=== PATIENT | male | born 1970 | race Caucasian/White ===

== ENCOUNTER 2024-02-19 16:07 | Emergency (ER) | payer SELFPAY ==
--- NOTE | 2024-02-19 16:11 | XRR_ITS ---
PROCEDURE INFORMATION: Exam: XR Abdomen Exam date and time: 02/19/2024 4:39 PM Age: 53 years old Clinical indication: Abdominal pain; Acute; Additional info: Constipation TECHNIQUE: Imaging protocol: Radiologic exam of the abdomen. Views: Frontal supine view of the abdomen. 1 View. COMPARISON: CR XR KUB [id number] 01/29/2018 8:24 AM FINDINGS: Gastrointestinal tract: Moderate fecal burden predominantly in the proximal colon and rectum. No bowel dilation. Bones/joints: No acute findings. XR/XR KUB [id number] IMPRESSION: No acute findings.
[2024-02-19 16:13] VITALS: BP 146/84; PULSE 88; RESP 14; TEMP 36.7; O2SAT 97; BMI 33.1
--- NOTE | 2024-02-19 16:40 | CTR_ITS ---
PROCEDURE INFORMATION: Exam: CT Abdomen And Pelvis Without Contrast Exam date and time: 02/19/2024 4:59 PM Age: 53 years old Clinical indication: Abdominal pain TECHNIQUE: Imaging protocol: Computed tomography of the abdomen and pelvis without contrast. Radiation optimization: All CT scans at this facility use at least one of these dose optimization techniques: automated exposure control; mA and/or kV adjustment per patient size (includes targeted exams where dose is matched to clinical indication); or iterative reconstruction. COMPARISON: CR (ABDOMEN, ) 02/19/2024 4:39 PM RADIATION DOSE METRICS: Total DLP (mGy-cm): 959.98 FINDINGS: Liver: Subcentimeter low-density hepatic lesions have benign features. Follow-up is not necessary. Gallbladder and biliary ducts: Normal. No calcified stones. No ductal dilation. Pancreas: Normal. No ductal dilation. Spleen: Normal. No splenomegaly. Adrenal glands: Normal. No mass. Kidneys and ureters: 4 mm nonobstructive calculus in the lower pole calyx of the right kidney. Bilateral renal cystic lesions. There is a 12 mm cystic lesion at the superior pole of the right kidney measuring 25 Hounsfield units in density. Bilateral subcentimeter renal lesions are too small to further characterize. There are cysts with benign features in the left kidney the larger of which measures 16 mm. Stomach and bowel: Unremarkable. No obstruction. No mucosal thickening. Appendix: A normal appendix is identified. Intraperitoneal space: Unremarkable. No free air. No significant fluid collection. Vasculature: Multivessel atherosclerotic disease. Lymph nodes: Unremarkable. No enlarged lymph nodes. Urinary bladder: Urinary bladder wall thickening could be due to cystitis or lack of distention. Reproductive: Unremarkable as visualized. Bones/joints: Mild to moderate lateral curvature of the lumbar spine with the convexity to the left. Soft tissues: Unremarkable. CT/CT abdomen pelvis wo con [id number] IMPRESSION: 1. Urinary bladder wall thickening could be due to cystitis or lack of distention. 2. 4 mm nonobstructing right renal calculus. 3. Bilateral renal cystic lesions cannot be further characterized without IV contrast. COMMENTS: Consistent with the [employer]'s Incidental Findings Committee white paper (J Am Zhanna Radiol 2018): Any incidental renal lesion less than 1 cm or classified as too small to characterize, or any incidental cystic renal lesion characterized as simple-appearing, is likely benign. No follow-up imaging is recommended for these lesions per consensus recommendations based on imaging criteria.
--- NOTE | 2024-02-19 16:41 | W.ED.ABDPA2 ---
HPI - Abdominal Pain General: Chief Complaint: Abdominal Pain Stated Complaint: constipation (sent by bc) Time Seen by Provider: 02/19/24 16:39 History of Present Illness: 53-year-old male presents emergency room with abdominal pains been going on for over a week. Reports that his lower abdominal pain he said discolored stools as well no hematochezia melena hematemesis or coffee-ground emesis he has felt sick a couple of times no fever no previous abdominal surgeries. No dysuria urgency or frequency. He has had kidney stones in the past states this does not feel like kidney stones he is not noticed any hematuria. Associated Symptoms: Reports change in stool character; Denies chills, dysuria and fever(s) Related Data Allergies Allergy/AdvReac Type Severity Reaction Status Date / Time No Known Allergies Allergy Verified 02/19/24 16:12 Review of Systems Const: Denies: fever(s) or chills Card: Denies: chest pain Resp: Denies: dyspnea GI: Reports: abdominal pain and change in stool character : Denies: dysuria, urinary frequency or urinary urgency Musc: Denies: neck pain or back pain Skin/Breast: Denies: rash PFSH ED PFSH: Medical History (Updated 02/19/24 @ 17:58 by Michel Eng DO) Nephrolithiasis Physical Exam Const: GENERAL APPEARANCE: cooperative ORIENTATION/CONSCIOUSNESS: Yes awake, Yes oriented to person, Yes oriented to place and Yes oriented to time HENMT: COMMON NORMALS: normocephalic, atraumatic and hearing grossly normal bilaterally HEAD & SCALP: normocephalic and atraumatic Resp: COMMON NORMALS: normal respiratory effort, No retractions, No use of accessory muscles and clear to auscultation bilaterally AUSCULTATION: clear to auscultation bilaterally Cardio: COMMON NORMALS: regular rate, regular rhythm and No murmurs present (Cardio) RATE: regular rate RHYTHM: regular rhythm GI: COMMON NORMALS: Soft to palpation and No hepatosplenomegaly present AUSCULTATION: Yes normoactive bowel sounds PALPATION: Yes Soft to palpation, No Tenderness to palpation present (GI), No Guarding due to palpation present (GI) and Yes No hepatosplenomegaly present Extremity: COMMON NORMALS: normal to inspection, capillary refill normal, no clubbing, cyanosis or edema, no calf tenderness and no pedal edema Neuro: SENSORIUM/ORIENTATION: Yes oriented to person, Yes oriented to place and Yes oriented to time Skin: COMMON NORMALS: no rashes or lesions noted GENERAL SKIN EXAM: no rashes or lesions noted Course Vital Signs: Vital signs: Vital Signs Temperature 98.0 F 02/19/24 16:13 Pulse Rate 82 02/19/24 18:13 Respiratory Rate 14 02/19/24 16:13 Blood Pressure 135/92 02/19/24 18:13 Pulse Oximetry 98 02/19/24 18:13 MDM - Abdominal Pain Medical Decision Making CT does not show any clinically significant pathology no leukocytosis chemistries normal urine normal. On plain film there is a moderate amount of retained stool. He can use lactulose as needed had a period clear liquid diet. Also start [id number] proton pump inhibitor. Reviewed findings with the patient no sign of acute clinical pathology. There is no sign of bowel obstruction. The CT is bladder is contracted there is some wall thickening is due to the contraction he is not having urinary tract symptoms at this time. Follow-up with primary care if not improving Medical Records I reviewed the patient's medical records. Lab Data I reviewed the patient's lab results. 02/19/24 16:50 02/19/24 16:50 Labs/Radiology: Radiology Impressions KUB X-Ray 02/19/24 16:11 IMPRESSION: No acute findings. Abdomen/Pelvis CT 02/19/24 16:40 IMPRESSION: 1. Urinary bladder wall thickening could be due to cystitis or lack of distention. 2. 4 mm nonobstructing right renal calculus. 3. Bilateral renal cystic lesions cannot be further characterized without IV contrast. COMMENTS: Consistent with the [employer]'s Incidental Findings Committee white paper (J Am Zhanna Radiol 2018): Any incidental renal lesion less than 1 cm or classified as too small to characterize, or any incidental cystic renal lesion characterized as simple-appearing, is likely benign. No follow-up imaging is recommended for these lesions per consensus recommendations based on imaging criteria. Laboratory Results WBC 6.52 10^3/uL (3.29-11.43) 02/19/24 16:50 RBC 5.47 10^6/uL (3.85-5.65) 02/19/24 16:50 Hgb 15.50 g/dL (11.27-16.99) 12/17/24 16:50 Hct 46.3 % (37-53) 02/19/24 16:50 MCV 84.6 fl (82-101) 02/19/24 16:50 MCH 28.3 pg (27-33) 02/19/24 16:50 MCHC 33.5 g/dL (30-55) 02/19/24 16:50 RDW 12.8 % (12.1-15.1) 02/19/24 16:50 Plt Count 191 10^3/cmm (157-399) 02/19/24 16:50 MPV 9.9 fL (7.4-10.4) 02/19/24 16:50 Neut % (Auto) 53.5 % 02/19/24 16:50 Lymph % (Auto) 36.0 % 02/19/24 16:50 [place] % (Auto) 7.4 % 02/19/24 16:50 Eos % (Auto) 2.0 % 02/19/24 16:50 Baso % (Auto) 0.6 % 02/19/24 16:50 Neut # (Auto) 3.49 10^3/uL (1.8-7.7) 02/19/24 16:50 Lymph # (Auto) 2.4 10^3/uL (0.8-4.8) 02/19/24 16:50 [place] # (Auto) 0.5 10^3/uL (0.2-0.9) 02/19/24 16:50 Eos # (Auto) 0.1 10^3/uL (0.0-0.8) 02/19/24 16:50 Baso # (Auto) 0.0 10^3/uL (0.0-0.1) 02/19/24 16:50 Nucleated RBC % (auto) 0 % 02/19/24 16:50 Nucleated RBCs # 0.0 /100WBC 02/19/24 16:50 Sodium 144 mmol/L (136-145) 02/19/24 16:50 Potassium 3.8 mmol/L (3.5-5.1) 02/19/24 16:50 Chloride 100 mmol/L (98-107) 02/19/24 16:50 Carbon Dioxide 30 mmol/L (22-29) H 02/19/24 16:50 Anion Gap 17.8 (5-19) 02/19/24 16:50 BUN 19 mg/dL (6-20) 02/19/24 16:50 Creatinine 0.8 mg/dL (0.7-1.2) 02/19/24 16:50 GFR Calculation 101.9 mL/min (90-130) 02/19/24 16:50 Glucose 89 mg/dL (65-115) 02/19/24 16:50 Calculated Osmolality 300 mOsm/kg (285-295) H 02/19/24 16:50 Calcium 9.5 mg/dL (8.5-10.5) 02/19/24 16:50 Total Bilirubin 0.3 mg/dL (0.15-1.2) 02/19/24 16:50 AST 25 U/L (0-40) 02/19/24 16:50 ALT 19 U/L (0-41) 02/19/24 16:50 Alkaline Phosphatase 93 U/L (40-130) 02/19/24 16:50 Total Protein 7.2 g/dL (6.6-8.7) 02/19/24 16:50 Albumin 4.7 g/dL (3.5-5.2) 02/19/24 16:50 Globulin 2.5 g/dL (1.3-4.6) 02/19/24 16:50 Lipase 28 U/L (13-60) 02/19/24 16:50 Urine Color Yellow (Yellow) 02/19/24 17:06 Urine Appearance Clear (CLEAR) 02/19/24 17:06 Urine pH 5.5 (5-7) 02/19/24 17:06 Ur Specific [place] 1.022 (1.005-1.030) 02/19/24 17:06 Urine Protein Negative (Negative) 02/19/24 17:06 Urine Glucose (UA) Negative (Normal) 02/19/24 17:06 Urine Ketones Negative (Negative) 02/19/24 17:06 Urine Blood Negative (Negative) 02/19/24 17:06 Urine Nitrate Negative (Negative) 02/19/24 17:06 Urine Bilirubin Negative (Negative) 02/19/24 17:06 Urine Urobilinogen 1.0 mg/dL (Negative) 02/19/24 17:06 Ur Leukocyte Esterase Negative (Negative) 02/19/24 17:06 Urine RBC 0-2 /hpf (0-2) 02/19/24 17:06 Urine WBC 0-5 /hpf (0-5) 02/19/24 17:06 Ur Squamous Epith Cells 0-5 /hpf (0-5) 02/19/24 17:06 Calcium Oxalate Crystal 0-4 /hpf H 02/19/24 17:06 Amorphous Sediment Not Reportable 02/19/24 17:06 Urine Bacteria None seen /hpf (NONE) 02/19/24 17:06 Hyaline Casts 0.81 /lpf 02/19/24 17:06 All radiology interpretation(s) finalized by discharge Discharge Plan Discharge Patient Disposition: Home Clinical Impression: Constipation Condition: Stable Discharge Orders: Discharge ED (Routine); Ordered 02/19/24 Ordered By: Michel Eng Discharge Diet: Usual diet Discharge Activity: Increase activity as tolerated Patient Instructions: Constipation (ED), Opioid Safety, Pain Management Activity Restrictions/Additional Instructions: Thank you for choosing [facility] for your healthcare needs today. It is very important that you follow up as instructed or that you return to the Emergency Department should you have concerns or if your condition changes or worsens in any way. 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
[2024-02-19 17:19] LABS: Basophils % 0.6 %; Eosinophils # 0.1 10^3/uL (0.0-0.8); Hematocrit 46.3 % (37-53); Lymphocytes # 2.4 10^3/uL (0.8-4.8); Mean Corpuscular HGB Conc 33.5 g/dL (30-55); Mean Corpuscular Hemoglobin 28.3 pg (27-33); Mean Corpuscular Volume 84.6 fl (82-101); Mean Platelet Volume 9.9 fL (7.4-10.4); Monocytes # 0.5 10^3/uL (0.2-0.9); Monocytes % 7.4 %; Neutrophils # 3.49 10^3/uL (1.8-7.7); Neutrophils % 53.5 %; Nucleated Red Blood Cells % 0 %; Platelet Count 191 10^3/cmm (157-399); Red Blood Count 5.47 10^6/uL (3.85-5.65); Red Cell Distribution Width 12.8 % (12.1-15.1); White Blood Count 6.52 10^3/uL (3.29-11.43)
[2024-02-19 17:20] LABS: Bilirubin Urine Negative (Negative); Blood Urine Negative (Negative); Glucose Urine UA Negative (Normal); Ketones Urine Negative (Negative); Leukocyte Esterase Urine Negative (Negative); Nitrate Urine Negative (Negative); Protein Urine Negative (Negative); Specific Gravity, Urine 1.022 (1.005-1.030); Urine Appearance Clear (CLEAR); Urine Color Yellow (Yellow); pH Urine 5.5 (5-7)
[2024-02-19 17:27] LABS: Add Urine Microscopic? YES; Bacteria Urine None Seen /hpf; Hyaline Casts Urine 0.81 /lpf; RBC Urine 0-2 /hpf (0-2); Squamous Epithelial Cell Urine 0-5 /hpf (0-5); WBC Urine 0-5 /hpf (0-5)
[2024-02-19 17:31] LABS: Calcium Oxalate Crystals Urine 0-4 /hpf; UA Slide Review UA Slide Review Perf
[2024-02-19 17:32] LABS: Add Urine Culture? No
[2024-02-19 17:36] LABS: Alanine Aminotransferase 19 U/L (0-41); Albumin Level 4.7 g/dL (3.5-5.2); Alkaline Phosphatase 93 U/L (40-130); Anion Gap 17.8 (5-19); Aspartate Amino Transferase 25 U/L (0-40); Blood Urea Nitrogen 19 mg/dL (6-20); Calcium 9.5 mg/dL (8.5-10.5); Carbon Dioxide 30 mmol/L (22-29); Chloride 100 mmol/L (98-107); Creatinine Clr Calc Pharmacy 148.5354; Globulin 2.5 g/dL (1.3-4.6); Glomerular Filtration Rate 101.9 mL/min (90-130); Glucose 89 mg/dL (65-115); Lipase 28 U/L (13-60); Osmolality Calculated 300 mOsm/kg (285-295); Potassium 3.8 mmol/L (3.5-5.1); Sodium 144 mmol/L (136-145); Total Bilirubin 0.3 mg/dL (0.15-1.2); Total Protein 7.2 g/dL (6.6-8.7)
[2024-02-19 18:13] VITALS: BP 135/92; PULSE 82; O2SAT 98
== END 2024-02-19 18:19 | disposition home or self-care (01) ==
PROVIDERS: Emergency Provider Family Medicine
DX: K59.00 Constipation, unspecified (principal)
CPT/HCPCS: 36415; 74018; 74176; 80053; 81001; 83690; 85025; 99284